=== PATIENT | male | born 1965 | race Two or more races ===

== ENCOUNTER 2019-03-01 12:59 | Inpatient (IN) | payer MEDICAID ==
[~2019-03-01] VITALS: Ht 165.1 cm; Wt 109.8 kg
[2019-03-01] MEDS ORDERED: LOSARTAN POTASSIUM 25 MG TABLET PO ONE (14:45)
[2019-03-01] MEDS ORDERED: FAMOTIDINE 20MG/2ML VIAL IV ONE (14:45)
[2019-03-01] MEDS ORDERED: AMLODIPINE 10MG TABLET PO ONE (14:45)
[2019-03-01] MEDS ORDERED: ONDANSETRON HCL 4MG/2ML INJ IV ONE (14:45)
[2019-03-01] MEDS ORDERED: MORPHINE SULFATE 4 MG/ML CPJ (NOT FOR IM USE) IV ONE (14:45)
[2019-03-01 14:58] LABS: BASOPHILS % 0.5 % (0.0-2.0); HEMATOCRIT. 41.3 % (42.0-52.0); HEMOGLOBIN. 13.6 g/dL (14.0-18.0); LYMPHOCYTES % 8.6 % (20.0-50.0); MEAN CORPUSCULAR HEMOGLOBIN 28.7 pg (28.0-32.0); MEAN CORPUSCULAR VOLUME 87.3 fL (80.0-94.0); MEAN PLATELET VOLUME 8.4 fl (7.4-10.4); MONOCYTES % 5.4 % (2.0-8.0); NEUTROPHILS % 85.5 % (40.0-76.0); PLATELET 316 x1000/uL (130-400); RED BLOOD CELL COUNT 4.73 mill/uL (4.7-6.1); RED CELL DISTRIBUTION WIDTH 16.1 % (11.6-14.6)
[2019-03-01 15:04] LABS: CHLORIDE 103 mEq/L (98-107)
[2019-03-01] MEDS ORDERED: CLONIDINE 0.1MG TABLET PO PRN (16:00)
[2019-03-01] MEDS ORDERED: MORPHINE SULFATE 4 MG/ML CPJ (NOT FOR IM USE) IV NR (16:00)
[2019-03-01] MEDS ORDERED: ACETAMINOPHEN 325MG TABLET PO PRN (16:00)
[2019-03-01] MEDS ORDERED: ONDANSETRON HCL 4MG/2ML INJ IV PRN (16:00)
[2019-03-01] MEDS ORDERED: LOSARTAN POTASSIUM 100 MG TABLET PO NR (16:30)
[2019-03-01] MEDS ORDERED: AMLODIPINE 5MG TABLET PO NR (16:30)
[2019-03-01] MEDS ORDERED: LABETALOL 5MG/ML SYR 20 MG/4 ML SYRINGE IV NR (16:57)
[2019-03-01 18:00] VITALS: BP 152/87
[2019-03-01] MEDS: MORPHINE SULFATE 4 MG/ML CPJ (NOT FOR IM USE) IV PRN (18:44)
[2019-03-01 20:00] VITALS: BP 100/53
[2019-03-01] MEDS: AMLODIPINE 5MG TABLET PO SCH (21:00)
[2019-03-01] MEDS ORDERED: ZOLPIDEM TARTRATE 5MG TABLET PO PRN (21:00)
[2019-03-01] MEDS: ENOXAPARIN 30MG/0.3ML SYR SUBCUT SCH (21:48)
[2019-03-02] VITALS: BP 98/53
[2019-03-02 04:00] VITALS: BP 96/50
[2019-03-02] MEDS: OMEPRAZOLE 20MG CAPSULE EXTENDED RELEASE PO SCH (06:41)
[2019-03-02 08:00] VITALS: BP 106/61
[2019-03-02] MEDS: AMLODIPINE 5MG TABLET PO SCH ×2 (08:43→20:35)
[2019-03-02] MEDS: ENOXAPARIN 30MG/0.3ML SYR SUBCUT SCH ×2 (08:52→20:36)
[2019-03-02] MEDS: MORPHINE SULFATE 4 MG/ML CPJ (NOT FOR IM USE) IV PRN ×4 (08:52→23:14)
[2019-03-02] MEDS: CLOPIDOGREL 75MG TABLET PO SCH (08:53)
[2019-03-02] MEDS: ASPIRIN 325MG EC TABLET PO SCH (08:53)
[2019-03-02] MEDS ORDERED: LOSARTAN POTASSIUM 100 MG TABLET PO SCH (09:00)
[2019-03-02 12:00] VITALS: BP 110/60
[2019-03-02 16:00] VITALS: BP 138/63
[2019-03-02 19:03] LABS: CLARITY URINE CLEAR (CLEAR); COLOR URINE YELLOW (YELLOW); KETONES URINE NEGATIVE (NEGATIVE); LEUKOCYTE ESTERASE URINE NEGATIVE (NEGATIVE); NITRITE URINE NEGATIVE (NEGATIVE); OCCULT BLOOD URINE NEGATIVE (NEGATIVE); PH URINE 5.5 (4.5-8.0); PROTEIN URINE NEGATIVE (NEGATIVE); UROBILINOGEN URINE 0.2 E.U./dL (0.2-1.0)
[2019-03-02 19:18] LABS: *AMPHETAMINES SCREEN URINE NEGATIVE (NEGATIVE); *BARBITURATES SCREEN URINE NEGATIVE (NEGATIVE)
[2019-03-02 19:19] LABS: *BENZODIAZEPINES SCREEN URINE NEGATIVE (NEGATIVE); *COCAINE SCREEN URINE NEGATIVE (NEGATIVE); CANNABINOID URINE SCREEN NEGATIVE (NEGATIVE); METHADONE URINE SCREEN NEGATIVE (NEGATIVE); OPIATES URINE SCREEN PRESUMTIVE POSITIVE (NEGATIVE); PHENCYCLIDINE URINE SCREEN NEGATIVE (NEGATIVE)
[2019-03-02 20:00] VITALS: BP 116/70
[2019-03-02] MEDS ORDERED: ATORVASTATIN CALCIUM 10MG TABLET PO SCH (21:00)
[2019-03-02] MEDS ORDERED: IOHEXOL-300 100 ML BOTTLE ONE (22:30)
[2019-03-03] VITALS: BP 110/53
[2019-03-03 04:00] VITALS: BP 126/80
[2019-03-03] MEDS: MORPHINE SULFATE 4 MG/ML CPJ (NOT FOR IM USE) IV PRN ×3 (04:12→12:57)
[2019-03-03 06:58] LABS: HEMATOCRIT. 41.3 % (42.0-52.0); HEMOGLOBIN. 13.3 g/dL (14.0-18.0); MEAN CORPUSCULAR HEMOGLOBIN 28.4 pg (28.0-32.0); MEAN CORPUSCULAR VOLUME 87.9 fL (80.0-94.0); MEAN PLATELET VOLUME 8.5 fl (7.4-10.4); PLATELET 305 x1000/uL (130-400); RED CELL DISTRIBUTION WIDTH 16.2 % (11.6-14.6)
[2019-03-03 07:25] LABS: CHLORIDE 101 mEq/L (98-107)
[2019-03-03 08:00] VITALS: BP 122/84
[2019-03-03] MEDS ORDERED: LOSARTAN POTASSIUM 25 MG TABLET PO SCH (09:00)
[2019-03-03] MEDS: AMLODIPINE 5MG TABLET PO SCH (09:10)
[2019-03-03] MEDS: ENOXAPARIN 30MG/0.3ML SYR SUBCUT SCH (09:10)
[2019-03-03] MEDS: CLOPIDOGREL 75MG TABLET PO SCH (09:10)
[2019-03-03] MEDS: OMEPRAZOLE 20MG CAPSULE EXTENDED RELEASE PO SCH (09:10)
[2019-03-03] MEDS: ASPIRIN 325MG EC TABLET PO SCH (09:11)
[2019-03-03 10:28] LABS: PLATELET ESTIMATE NORMAL
[2019-03-03 12:00] VITALS: BP 110/70
[2019-03-03 13:43] VITALS: BP 110/70
== END 2019-03-03 15:20 | disposition home or self-care (01) | DRG 241 ==
LOC: ER 12:59 → EDBEDREQ 14:53 → 8WST 15:45 → EDBEDREQ 15:49 → ENRESERV 16:36
PROVIDERS: ADMIT Internal Medicine; ATTEND Internal Medicine
DX: K29.70 Gastritis, unspecified, without bleeding (principal); I24.9 Acute ischemic heart disease, unspecified; K21.9 Gastro-esophageal reflux disease without esophagitis; D35.01 Benign neoplasm of right adrenal gland; E66.9 Obesity, unspecified; E78.5 Hyperlipidemia, unspecified; J44.9 Chronic obstructive pulmonary disease, unspecified; K42.9 Umbilical hernia without obstruction or gangrene; F17.210 Nicotine dependence, cigarettes, uncomplicated; I25.10 Atherosclerotic heart disease of native coronary artery without angina pectoris; I49.3 Ventricular premature depolarization; I71.4 Abdominal aortic aneurysm, without rupture; Z79.02 Long term (current) use of antithrombotics/antiplatelets; Z79.4 Long term (current) use of insulin; I25.2 Old myocardial infarction; Z79.82 Long term (current) use of aspirin; Z59.0 Homelessness; Z95.5 Presence of coronary angioplasty implant and graft; Z87.11 Personal history of peptic ulcer disease; Z90.49 Acquired absence of other specified parts of digestive tract; Z71.6 Tobacco abuse counseling; Z68.41 Body mass index [BMI] 40.0-44.9, adult
CPT/HCPCS: 36415; 71045; 74178; 80048; 80061; 80305; 83036; 83880; 84443; 84484; 93005; 93306; 96374; 96375; 96376; 99285; J1650; J2270; J2405; J3490; Q9967